=== PATIENT | male | born 1970 | race Asian ===

== ENCOUNTER 2022-10-27 13:12 | Outpatient (CLI) | payer OTHER, SELFPAY | END 2022-10-27 13:13 | disposition home or self-care (01) | PROVIDERS: PCP Family Medicine; Visit Provider Emergency Medicine | DX: Z00.00 Encounter for general adult medical examination without abnormal findings (principal); R03.0 Elevated blood-pressure reading, without diagnosis of hypertension; Z12.5 Encounter for screening for malignant neoplasm of prostate; M10.9 Gout, unspecified | CPT/HCPCS: 80048; 84153; 86140 ==

== ENCOUNTER 2023-04-28 17:10 | Inpatient (IN) | payer OTHER, SELFPAY ==
[2023-04-28] VITALS (36 sets, daily range): BP systolic 109–142; BP diastolic 78–98; PULSE 81–107; RESP 16–22; TEMP 36.3–37; O2SAT 96–100; BMI 17.8
--- NOTE | 2023-04-28 17:40 | CRLHL7_ITS ---
For Patients: As a result of the Century Cures Act, medical imaging exams and procedure reports are released immediately into your electronic medical record. You may view this report before your referring provider. If you have questions, please contact your health care provider. INDICATION: Shortness of breath. TECHNIQUE: CT Pulmonary Angiogram examination was performed after the administration of 95 mL Isovue 370 contrast intravenously. COMPARISON: None. FINDINGS: Lower neck: Visualized thyroid is unremarkable. Cardiovascular: Contrast opacification of the pulmonary arterial tree is adequate. Thoracic aorta is normal in caliber. Pulmonary artery is normal in caliber. No pulmonary embolus. No significant atherosclerotic calcifications. Heart size is normal. No right heart strain. No significant coronary arterial calcifications. Lungs: Dependent atelectasis. Linear bandlike opacifications of the lung bases likely due to subsegmental atelectasis and/or scarring. No focal consolidation. There is a mosaic attenuation pattern of opacification, nonspecific but can be seen with atypical infection, edema and/or air trapping. Airways: Layering debris within the dependent portions of the trachea. Otherwise, patent. Pleura: No pleural effusions or pneumothorax. Lymph nodes: No mediastinal, hilar, or axillary adenopathy. Chest wall: Normal. Upper abdomen: Visualized portions unremarkable. Bones: No acute osseous abnormalities. IMPRESSION: No pulmonary embolus. No CT evidence of right heart strain. Please note that all CT scans at this facility use dose modulation, iterative reconstruction, and/or weight-based dosing when appropriate to reduce radiation dose to as low as reasonably achievable. Dictated by Ozzie Mak MD @ 04/28/2023 7:24:01 PM (Electronically Signed)
[2023-04-28 17:53] LABS: Troponin, Point-of-Care* 0.01 ng/ml (0.01-0.04)
--- NOTE | 2023-04-28 17:54 | ED.GENADULT ---
HPI - General Adult General Time Seen by Provider: 17:54 Date Seen: 04/28/23 Chief complaint: Chest Pain Stated complaint: chest pain Time Seen by Provider: 04/28/23 17:11 Source: patient Mode of arrival: ambulatory Limitations: no limitations History of Present Illness HPI narrative: Patient is a very pleasant 52-year-old male who describes several day history of intermittent severe lower substernal chest discomfort and cold sweats, nausea, he does report to me that he vomits and it is dark black and he also has black stool. He had a colonoscopy in November of this year and that was normal. Patient has had a normal stress echocardiogram in the past as well. This is by chart review. The patient states that intermittently gets this sharp lower chest wall pain. He also has early satiety and feels like when he eats he gets full very quickly. He has not had any history of ulcer disease or he does not drink alcohol at all, no history of varices. He has had no other specific complaints. He does not feel fevers. When he does get these intermittent bouts of pain he has severe cold sweats. Related Data Previous Rx's ?Medication ?Instructions ?Recorded diclofenac sodium 1 % topical gel 2 g topical QID #100 grams 05/05/23 (Arthritis Pain (diclofenac)) cholecalciferol (vitamin D3) 50 50 mcg PO QDAY #90 caps 06/09/23 mcg (2,000 unit) capsule iron,carbonyl 65 mg-vitamin C 125 1 tab PO QDAY #90 tabs 06/09/23 mg tablet,delayed release (Vitron-C) nortriptyline 10 mg capsule 10 - 20 mg (1 - 2 x 10 mg) PO QHS 06/09/23 #90 caps omeprazole 20 mg tablet,delayed 20 mg PO DAILY #90 tabs 07/27/23 release famotidine 20 mg tablet 20 mg PO BID PRN gerd #180 tabs 09/28/23 sucralfate 1 gram tablet (Carafate) 1 g PO BID #60 tabs 11/28/23 Allergies Allergy/AdvReac Type Severity Reaction Status Date / Time No Known Allergies Allergy Unknown Verified 06/09/23 14:13 Review of Systems Status of ROS: Reports: 10 or more systems reviewed and unremarkable except as noted in History and below [facility] Medical History (Updated 06/09/23 @ 18:01 by Ellis Arellano MD) Gastritis and duodenitis ?K29.90 - Gastroduodenitis, unspecified, without bleeding (ICD-10) ABLA (acute blood loss anemia) ?D62 - Acute posthemorrhagic anemia (ICD-10) Elevated blood pressure reading ?R03.0 - Elevated blood-pressure reading, without diagnosis of hypertension (ICD-10) Screening for prostate cancer ?Z12.5 - Encounter for screening for malignant neoplasm of prostate (ICD-10) Screening for colon cancer ?Z12.11 - Encounter for screening for malignant neoplasm of colon (ICD-10) Gouty arthritis ?M10.9 - Gout, unspecified (ICD-10) Normal stress echocardiogram Unintentional weight loss ?R63.4 - Abnormal weight loss (ICD-10) Surgical History (Updated 04/28/23 @ 20:48 by Erik Celestin MD) History of colonoscopy ?Z98.890 - Other specified postprocedural states (ICD-10) Family History Father Coronary artery disease Mother Stroke Social History (Updated 04/28/23 @ 20:49 by Erik Celestin MD) Narrative: He lives with his family in [place]. He is a former smoker and reports now having a cigarette about twice a year. He does not drink alcohol. He does not have recreational drug use. What is your current living situation?: I presently have a place to live Problems where you live: no known problems Problems where you live details: n/a In the past 12 months, utilities in danger of being shut off: no In past 12 months, lack of transportation kept you from medical appts, meetings, work, or getting things needed for daily living: no In the past 12 mos, have been you worried that your food would run out before you had money to buy more?: never true In the past 12 mos, the food you bought just didn't last and you didn't have money to buy more?: never true Highest level of school completed/degree received: some college, no degree Smoking Status: Never smoker Do you use any of these nicotine containing products: None Second hand tobacco smoke exposure: No How often do you have a drink containing alcohol: never How often do you have six or more drinks on one occasion: Never AUDIT-C Alcohol total score: 0 Non-prescribed substance use: denies use Caffeine: No How often does anyone, including family, friends and others, physically hurt you: never How often does anyone, including family, friends and others, insult or talk down to you: never How often does anyone, including family, friends and others, threaten you with harm: never How often does anyone, including family, friends and others, scream or curse at you: never Little interest or pleasure in doing things: nearly every day Feeling down, depressed, or hopeless: not at all service: No Exam Narrative: Exam Narrative: Objective: Patient's vital signs actually look unremarkable other than his diastolic blood pressure slightly elevated, his O2 sats 100% on room air He slightly pale, conjunctiva slightly pale. He is alert orient x3. Noncyanotic. Mouth is clear and shows hydration. Neck is supple. Chest is clear Heart rhythm regular 2/6 systolic murmur Abdomen is benign soft nontender, but he does have some some mild subxiphoid tenderness to palpation but no palpable mass. Extremities are no edema Neurologic neurologic nonfocal Skin periphery slightly pale as mention. But he is warm. Const: Vital Signs, click to edit/add: Vital Signs - 24 hr 04/28/23 17:26 04/28/23 17:35 04/28/23 17:40 Temperature 97.6 F Pulse Rate 87 Pulse Rate [Pulse Oximeter] 86 Respiratory Rate 18 Blood Pressure Blood Pressure [Ri ght Upper Arm] 138/98 H Pulse Oximetry 100 100 98 Oxygen Delivery Me thod Room Air 04/28/23 18:01 04/28/23 18:35 04/28/23 18:36 Temperature Pulse Rate 91 107 H 102 H Pulse Rate [Pulse Oximeter] Respiratory Rate Blood Pressure 120/85 135/88 Blood Pressure [Ri ght Upper Arm] Pulse Oximetry 97 100 98 Oxygen Delivery Me thod 04/28/23 18:37 04/28/23 19:00 04/28/23 19:01 Temperature Pulse Rate 99 95 95 Pulse Rate [Pulse Oximeter] Respiratory Rate Blood Pressure 109/78 Blood Pressure [Ri ght Upper Arm] Pulse Oximetry 99 98 99 Oxygen Delivery Me thod 04/28/23 19:30 04/28/23 19:31 04/28/23 19:32 Temperature Pulse Rate 97 96 94 Pulse Rate [Pulse Oximeter] Respiratory Rate Blood Pressure 126/90 H Blood Pressure [Ri ght Upper Arm] Pulse Oximetry 96 98 97 Oxygen Delivery Me thod 04/28/23 20:00 04/28/23 20:05 04/28/23 20:17 Temperature 97.9 F Pulse Rate 86 91 89 Pulse Rate [Pulse Oximeter] Respiratory Rate 16 Blood Pressure 125/95 H Blood Pressure [Ri ght Upper Arm] Pulse Oximetry 98 100 99 Oxygen Delivery Me thod 04/28/23 20:17 04/28/23 20:30 04/28/23 20:31 Temperature Pulse Rate 93 89 93 Pulse Rate [Pulse Oximeter] Respiratory Rate Blood Pressure 125/95 H 115/82 Blood Pressure [Ri ght Upper Arm] Pulse Oximetry 100 99 100 Oxygen Delivery Me thod 04/28/23 20:34 04/28/23 20:35 04/28/23 20:36 Temperature 97.4 F L Pulse Rate 92 95 91 Pulse Rate [Pulse Oximeter] Respiratory Rate 16 Blood Pressure 124/92 H 124/92 H Blood Pressure [Ri ght Upper Arm] Pulse Oximetry 99 99 99 Oxygen Delivery Me thod 04/28/23 21:02 04/28/23 21:03 04/28/23 21:19 Temperature 97.9 F Pulse Rate 92 83 86 Pulse Rate [Pulse Oximeter] Respiratory Rate 16 Blood Pressure 120/89 118/81 Blood Pressure [Ri ght Upper Arm] Pulse Oximetry 98 97 98 Oxygen Delivery Me thod 04/28/23 21:20 Temperature Pulse Rate 86 Pulse Rate [Pulse Oximeter] Respiratory Rate Blood Pressure 118/81 Blood Pressure [Ri ght Upper Arm] Pulse Oximetry 98 Oxygen Delivery Me thod Course Vital Signs Vital signs: Initial Vital Signs Temperature 97.6 F 04/28/23 17:26 Temperature Source Temporal Artery Scan 04/28/23 17:26 Pulse Rate 86 04/28/23 17:26 Pulse Rhythm Regular 04/28/23 17:26 Pulse Strength 3+ Normal 04/28/23 17:26 Respiratory Rate 18 04/28/23 17:26 Blood Pressure 138/98 H 04/28/23 17:26 Blood Pressure Mean 111 H 04/28/23 17:26 Blood Pressure Position Semi-Fowlers 04/28/23 17:26 Pulse Oximetry 100 04/28/23 17:26 Oxygen Delivery Method Room Air 04/28/23 17:26 Vital Signs Temperature 97.6 F 04/28/23 17:26 Pulse Rate 86 04/28/23 17:26 Respiratory Rate 18 04/28/23 17:26 Blood Pressure 138/98 H 04/28/23 17:26 Pulse Oximetry 100 04/28/23 17:26 Oxygen Delivery Method Room Air 04/28/23 17:26 Temperature 98 F 04/29/23 09:00 Pulse Rate 85 04/29/23 09:00 Respiratory Rate 18 04/29/23 09:00 Blood Pressure 120/89 04/29/23 09:00 Pulse Oximetry 98 04/29/23 09:00 Oxygen Delivery Method Room Air 04/29/23 09:00 Medical Decision Making MDM Narrative Medical decision making narrative: 52-year-old male with intermittent episodes of left-sided and substernal chest pain subxiphoid in area. Patient report he took a couple of Advil and Aleve last night, but typically does not take these. He has had these intermittent spells of discomfort. He is concerned about this. He has had black stool in vomitus consistent with GI bleed. Patient this point needs to be type and cross for 2 units, blood type, will start IV Protonix, IV fluid, I think for completeness will get a CT scan of his chest to see if there is any esophageal mass or chest mass. Will check EKG and troponin. Depending on hemoglobin status and findings may need either admission or referral for more urgent endoscopy. Will check fecal occult blood. Addendum 6:46 p.m. patient continued continues to have intermittent waves of discomfort in his epigastrium and substernal area. A repeat EKG was done that did show some ST segment depression laterally. Will check his labs and troponin will repeat his EKG. Addendum 6:52 p.m. the patient a 2nd EKG as he had another spell and wave of discomfort. His EKG has changed she has got some lateral ST depression in V4 5 and 6 he has got some T-wave inversion in 1 and aVL that are different from his pursed EKG. I think pending his hemoglobin level which certainly fits extremely low could cause some EKG changes we will make decision regarding aspirin, heparin, acute coronary syndrome treatment verses GI bleed him and hemorrhage treatment. The patient was given some small dose of morphine and IV fluid was continued. He has not been hypertensive or tachycardic. Addendum 7:10 p.m.: The patient has a hemoglobin of 5.5. I think this is an acute size changer the last week when he had symptomology. He has had black vomit and black stools for the 4-5 days. He had a 2nd EKG that shows some ST segment depression by think that might be related to his anemia. And not coronary disease as his troponin is normal, his hemodynamics appear pretty normal. We will start blood when the type and screen is complete. Will discuss with tertiary care regarding accepting because we do not have endoscopy here and I suspect he will need upper endoscopy fairly acutely. Throughout the evening we have tried to contact various healthcare facilities throughout [place] and there are no available beds in any system. Will start blood on Mr. Acuña and he continues to be hemodynamically stable. We have given him Protonix, Carafate, IV fluid, and now type specific blood. He will be kept in the ER for a couple of hours to assure that he is stable and not decompensating although he has been very stable hemodynamically so far. Will continue his transfusions. At that point likely hospitalization. He will need upper GI study in the very near future. Because there was no transfer availability even with limited success for any given TXA as well as we have no transfer options. Patient does feel a little bit better. Lab Data Labs: Lab Results 04/28/23 04/28/23 Range/Units 17:30 18:40 WBC 5.90 (4.50-11.00) K/uL RBC 1.87 L (4.30-5.90) m/uL Hgb 5.5 L* (13.5-17.5) gm/dL Hct 17.1 L (37.0-53.0) % MCV 91 (80-100) fL MCH 29 (26-34) pg MCHC 32 (32-36) gm/dL RDW Coeff of Harry 15.4 (11.5-15.5) % Plt Count 235 (140-440) K/uL Neut % (Auto) 43.1 (42.0-72.0) % Lymph % (Auto) 43.4 (20-44) % [place] % (Auto) 10.5 (0.0-11.0) % Eos % (Auto) 2.0 (0.0-7.0) % Baso % (Auto) 0.7 (0.0-3.0) % Neut # (Auto) 2.54 (1.7-7.0) K/uL Lymph # (Auto) 2.56 (0.90-2.90) K/uL [place] # (Auto) 0.60 (0.00-0.90) K/UL Eos # (Auto) 0.12 (0.00-0.50) K/uL Baso # (Auto) 0.04 (0.00-0.30) K/uL Abs Immat Gran (auto) 0.02 (0.00-0.30) K/uL Imm/Tot Granulo (auto) 0.3 % INR 1.12 H (0.91-1.10) APTT 26 (23-33) Seconds Sodium 138 (135-149) mmol/L Potassium 3.5 L (3.6-5.1) mmol/L Chloride 109 (96-114) mmol/L Carbon Dioxide 23 (20-32) mmol/L Anion Gap 6 L (7-15) mEq/L BUN 21 (7-30) mg/dL Creatinine 0.5 (0.5-1.5) mg/dL Estimated Creat Clear 124.74 Estimated GFR 124 ml/min Glucose 80 (60-115) mg/dL Lactate 1.3 (0.5-1.9) mmol/L Calcium 7.5 L (8.4-10.6) mg/dL Total Bilirubin 0.1 (0.1-1.5) mg/dL Direct Bilirubin 0.0 (0.0-0.5) mg/dL AST 21 (12-35) U/L ALT 18 (4-50) U/L Alkaline Phosphatase 54 (40-150) U/L Troponin I < 0.01 L (0.01-0.04) ng/mL C-Reactive Protein < 0.5 L (0.5-1.0) mg/dL Total Protein 5.2 L (6.0-8.3) g/dL Albumin 2.6 L (3.3-5.0) g/dL Amylase 61 (18-89) U/L POC Troponin I 0.01 (0.01-0.04) ng/ml Blood Type AB Positive Antibody Screen NEGATIVE Crossmatch (AHG) See Detail Discharge Plan Discharge Clinical Impression: GI bleed, Chest pain Patient Disposition: Admitted As Inpatient Condition: Stable
[2023-04-28] MEDS: LORazepam 2 MG/ML inj 0.5 MG IVP (18:02)
[2023-04-28] MEDS: 0.9 % SODIUM CHLORIDE 500 ML 500 ML IV (18:02)
[2023-04-28] MEDS: PANTOPRAZOLE SODIUM 40 MG INJ IVP ×2 (18:02→19:30)
[2023-04-28] MEDS: 0.9 % SODIUM CHLORIDE 1000 ml 1,000 ML 6000 ML IV (18:45)
[2023-04-28] MEDS: MORPHINE 4 MG/ML INJ IVP (18:45)
[2023-04-28 18:49] LABS: Lactate* 1.3 mmol/L (0.5-1.9)
--- NOTE | 2023-04-28 18:49 | ED.NURSE ---
Patient returned from CT scan and began reporting 10/10 chest pain. At that time, he appeared very pale. Repeat EKG performed. VS taken. Dr. Magallon notified of change in patient status. Pt given 4mg Morphine IV per Dr. Magallon's orders. 2 warm blankets applied as pt's skin was cool to touch. Warmed NS started.
[2023-04-28 18:52] LABS: Basophils Absolute Auto 0.04 K/uL (0.00-0.30); Basophils Percent Auto 0.7 % (0.0-3.0); Eosinophils Absolute Auto 0.12 K/uL (0.00-0.50); Hematocrit 17.1 % (37.0-53.0); Immature Granulocytes Abs Auto 0.02 K/uL (0.00-0.30); Immature Granulocytes Pct Auto 0.3 %; Lymphocytes Absolute Auto 2.56 K/uL (0.90-2.90); Lymphocytes Percent Auto 43.4 % (20-44); Mean Corpuscular HGB Conc 32 gm/dL (32-36); Mean Corpuscular Hemoglobin 29 pg (26-34); Mean Corpuscular Volume 91 fL (80-100); Monocytes Percent Auto 10.5 % (0.0-11.0); Neutrophils Absolute Auto 2.54 K/uL (1.7-7.0); Neutrophils Percent Auto 43.1 % (42.0-72.0); Platelet Count* 235 K/uL (140-440); RDW Coefficient of Variation % 15.4 % (11.5-15.5); Red Blood Count 1.87 m/uL (4.30-5.90)
--- NOTE | 2023-04-28 18:57 | ED.NURSE ---
Received call from Renetta in lab. Pt's hemoglobin critical at 5.5. Dr. Magallon verbally notified @ [id number]. Per Dr. Magallon, will await type & screen then plan to transfuse 2u PRBC's.
[2023-04-28 18:58] LABS: Hemoglobin* 5.5 gm/dL (13.5-17.5)
[2023-04-28 19:09] LABS: Albumin* 2.6 g/dL (3.3-5.0); Chloride* 109 mmol/L (96-114)
[2023-04-28 19:10] LABS: Potassium* 3.5 mmol/L (3.6-5.1); Sodium* 138 mmol/L (135-149)
[2023-04-28] MEDS: SUCRALFATE 1 GM TABLET PO (19:10)
[2023-04-28 19:11] LABS: INR 1.12 (0.91-1.10); Partial Thromboplastin Time* 26 Seconds (23-33)
[2023-04-28 19:12] LABS: Amylase* 61 U/L (18-89); Creatinine* 0.5 mg/dL (0.5-1.5); Est. Creatinine Clearance* 124.74; Estimated Glomerular Filt Rate 124 ml/min
[2023-04-28 19:13] LABS: Alanine Aminotransferase* 18 U/L (4-50); Alkaline Phosphatase* 54 U/L (40-150); Anion Gap 6 mEq/L (7-15); Aspartate Amino Transferase* 21 U/L (12-35); Bilirubin Total* 0.1 mg/dL (0.1-1.5); Blood Urea Nitrogen* 21 mg/dL (7-30); Calcium* 7.5 mg/dL (8.4-10.6); Carbon Dioxide* 23 mmol/L (20-32); Glucose* 80 mg/dL (60-115); Total Protein* 5.2 g/dL (6.0-8.3)
[2023-04-28 19:25] LABS: C Reactive Protein* < 0.5 mg/dL (0.5-1.0); Troponin I* < 0.01 ng/mL (0.01-0.04)
[2023-04-28 20:10] LABS: Slide Review Reflex No
--- NOTE | 2023-04-28 20:36 | PM.IMHP1 ---
Hospitalist- H&P: HPI History of Present Illness Date Seen: 04/28/23 Chief complaint: chest pain Narrative: London Ojeda is a 52 year old male admitted through the emergency department with 4 day history of chest pain, dyspnea, hematemesis, melena. Patient reports that starting Monday he was having substernal chest pain. This is relatively constant. He was also vomiting of black gastric contents. He also noted that he was having melanotic stools. He took aspirin and Aleve with temporary relief of symptoms. He felt a little better on Monday and Monday. He felt worse on again with more chest pain, hematemesis and melena. He took more aspirin and Aleve. Symptoms continued till today and so he came to the emergency department. He does note that he has been having heartburn for the last few months. Intermittently he takes Prilosec for this. He estimates that he takes it about every other day. He does not having trouble swallowing. He has no cardiac history or cardiac risk factors. He has no history of GI bleeding or anemia. No history of bleeding or clotting disorders. Other than his recent aspirin and NSAID use he does not regularly consume aspirin or NSAIDs. He is not on anticoagulation. He does not drink alcohol. He rarely smokes cigarettes. He reports no recreational drug use. He has no history of liver disease, hepatitis, jaundice. Review of Systems Narrative: Prior to the last 4 days he reports he has had some heartburn. He also describes some indigestion or slow digestion. No other history of cardiac heard gastrointestinal symptoms. He had a normal stress echo test about 4 years ago [facility] Medical History (Updated 04/28/23 @ 20:55 by Erik Celestin MD) ABLA (acute blood loss anemia) ?D62 - Acute posthemorrhagic anemia (ICD-10) Elevated blood pressure reading ?R03.0 - Elevated blood-pressure reading, without diagnosis of hypertension (ICD-10) Screening for prostate cancer ?Z12.5 - Encounter for screening for malignant neoplasm of prostate (ICD-10) Screening for colon cancer ?Z12.11 - Encounter for screening for malignant neoplasm of colon (ICD-10) Gouty arthritis ?M10.9 - Gout, unspecified (ICD-10) Normal stress echocardiogram Unintentional weight loss ?R63.4 - Abnormal weight loss (ICD-10) Surgical History (Updated 04/28/23 @ 20:48 by Erik Celestin MD) History of colonoscopy ?Z98.890 - Other specified postprocedural states (ICD-10) Family History Father Coronary artery disease Mother Stroke Social History (Updated 04/28/23 @ 20:49 by Erik Celestin MD) Narrative: He lives with his family in [place]. He is a former smoker and reports now having a cigarette about twice a year. He does not drink alcohol. He does not have recreational drug use. Smoking Status: Former smoker Do you use any of these nicotine containing products: None Second hand tobacco smoke exposure: No How often do you have a drink containing alcohol: never How often do you have six or more drinks on one occasion: Never AUDIT-C Alcohol total score: 0 Non-prescribed substance use: denies use Little interest or pleasure in doing things: nearly every day Feeling down, depressed, or hopeless: not at all service: No Meds Home Medications and Allergies Home Medication Comments: No chronic medications. This week he has been taking aspirin and Aleve for chest pain Allergies Allergy/AdvReac Type Severity Reaction Status Date / Time No Known Allergies Allergy Unknown Verified 04/28/23 17:31 Exam Narrative: Exam Narrative: He is alert and appears in no distress. He gives his own history. His somewhat pale-appearing. Eyes normal. Sclerae nonicteric. Oropharynx is normal. Neck is supple without mass or adenopathy. Respirations are clear to auscultation. No wheezing rales or rhonchi. Cardiovascular: S1, S2, regular rate and rhythm. No murmur gallop or rub. Abdomen: Bowel sounds active. Abdomen is soft with mild tenderness just below and to the left of the umbilicus. No mass. Extremities with intact pulses. Question of clubbing of his fingernails. Intact peripheral pulses. No edema. No rash Const: Vital Signs, click to edit/add: Vital Signs - 24 hr 04/28/23 17:26 04/28/23 17:35 04/28/23 17:40 Temperature 97.6 F Pulse Rate 87 Pulse Rate [Pulse Oximeter] 86 Respiratory Rate 18 Blood Pressure Blood Pressure [Ri ght Upper Arm] 138/98 H Pulse Oximetry 100 100 98 Oxygen Delivery Me thod Room Air 04/28/23 18:01 04/28/23 18:35 04/28/23 18:36 Temperature Pulse Rate 91 107 H 102 H Pulse Rate [Pulse Oximeter] Respiratory Rate Blood Pressure 120/85 135/88 Blood Pressure [Ri ght Upper Arm] Pulse Oximetry 97 100 98 Oxygen Delivery Me thod 04/28/23 18:37 04/28/23 19:00 04/28/23 19:01 Temperature Pulse Rate 99 95 95 Pulse Rate [Pulse Oximeter] Respiratory Rate Blood Pressure 109/78 Blood Pressure [Ri ght Upper Arm] Pulse Oximetry 99 98 99 Oxygen Delivery Me thod 04/28/23 19:30 04/28/23 19:31 04/28/23 20:17 Temperature 97.9 F Pulse Rate 97 96 89 Pulse Rate [Pulse Oximeter] Respiratory Rate 16 Blood Pressure 126/90 H 125/95 H Blood Pressure [Ri ght Upper Arm] Pulse Oximetry 96 98 99 Oxygen Delivery Me thod 04/28/23 20:34 Temperature 97.4 F L Pulse Rate 92 Pulse Rate [Pulse Oximeter] Respiratory Rate 16 Blood Pressure 124/92 H Blood Pressure [Ri ght Upper Arm] Pulse Oximetry 99 Oxygen Delivery Me thod Documenting provider has reviewed patient's vital signs: yes Hospitalist - H&P: Result Labs Labs: Short CBC 04/28/23 Range/Units 18:40 WBC 5.90 (4.50-11.00) K/uL Hgb 5.5 L* (13.5-17.5) gm/dL Hct 17.1 L (37.0-53.0) % Plt Count 235 (140-440) K/uL BMP 04/28/23 18:40 Sodium 138 Potassium 3.5 L Chloride 109 Carbon Dioxide 23 BUN 21 Creatinine 0.5 Glucose 80 Calcium 7.5 L Cardiac Enzymes 04/28/23 Range/Units 18:40 Troponin I < 0.01 L (0.01-0.04) ng/mL Liver Function 04/28/23 Range/Units 18:40 Total Bilirubin 0.1 (0.1-1.5) mg/dL Direct Bilirubin 0.0 (0.0-0.5) mg/dL AST 21 (12-35) U/L ALT 18 (4-50) U/L Alkaline Phosphatase 54 (40-150) U/L Albumin 2.6 L (3.3-5.0) g/dL Assessment and Plan Assessment and plan (1) ABLA (acute blood loss anemia): Problem comment: Close monitoring of vital signs, blood transfusion as needed, urgent evaluation of bleeding source with endoscopy. Unfortunately endoscopies not available here for the next 2.5 days. Attempts to transfer him to facility with more urgent endoscopy have been unsuccessful. Status: Acute (2) GI bleed: Problem comment: Initiate PPI, blood transfusion as needed, monitor for cardiovascular instability, upper endoscopy as soon as possible Status: Acute (3) Chest pain: Problem comment: Cardiovascular monitoring. Suspect chest pain may be due to GI bleeding problem. Status: Acute Plan Patient will be admitted to the hospital for close monitoring, blood transfusion, upper endoscopy as urgently as can be evaluated. Discussed plan of care with the patient. Also noted are limitations on urgent endoscopy. He is in agreement with the plan.
--- NOTE | 2023-04-28 20:40 | ED.NURSE ---
This continuity writer remained in room with pt for first 15 minutes after starting blood products. Pt denies any infusion reaction at this time. VS stable, see TAR for vitals. Pt resting comfortably in bed. Will reassess vitals for transfusion reaction at 2118. Pt verbalizes understanding to call if he feels any different at all.
[2023-04-28] MEDS: TRANEXAMIC ACID 100 MG/ML INJ 1000 MG IV (21:00)
--- NOTE | 2023-04-28 21:30 | ED.NURSE ---
Pt's vitals rechecked @ 2118. VS stable, see TAR. Pt continues to deny any sign of transfusion reaction. VS monitoring q 30 mins. Pt resting comfortably in bed at this assessment. Will continue to monitor and assess.
[2023-04-28 22:22] LABS: Hemoglobin* 7.2 gm/dL (13.5-17.5)
--- NOTE | 2023-04-28 22:22 | ED.NURSE ---
Pt's hemoglobin increased to 7.2 after 1 unit PRBC's. Med/surg updated on increase in hemoglobin. Per Dr. Celestin, plan was to admit to med/surg if hemoglobin is trending upwards.
--- NOTE | 2023-04-28 22:45 | ED.NURSE ---
2nd unit of PRBC's collected from lab. Sent with patient to med/surg floor for nurses to start. Patient's color improved after first unit. He reports feeling better than before start of blood. Patient in stable condition upon admit to med/surg. Pt going to CCU2. Report called. All questions answered.
[2023-04-28 22:49] LABS: Troponin I* 0.02 ng/mL (0.01-0.04)
[2023-04-28] MEDS: OMEPRAZOLE 20 MG CAPSULE DR 40 MG PO (23:47)
[2023-04-29] VITALS (9 sets, daily range): BP systolic 112–142; BP diastolic 79–89; PULSE 72–101; RESP 18–22; TEMP 36.3–37.1; O2SAT 96–98; BMI 20.5
[2023-04-29] MEDS: POTASSIUM CHLORIDE 10 MEQ/100 ML PIGGYBACK 100 MEQ IVPB ×2 (00:08→01:07)
[2023-04-29] MEDS: SODIUM CHLORIDE 0.9 % (FLUSH) 10 ML SYRINGE 5 ML IVF ×2 (00:14→10:20)
[2023-04-29] MEDS: PANTOPRAZOLE SODIUM 40 MG INJ IVP (00:40)
[2023-04-29 04:57] LABS: Chloride* 109 mmol/L (96-114)
[2023-04-29 04:58] LABS: Potassium* 3.9 mmol/L (3.6-5.1); Sodium* 137 mmol/L (135-149)
[2023-04-29 05:00] LABS: Creatinine* 0.5 mg/dL (0.5-1.5); Est. Creatinine Clearance* 144.36; Estimated Glomerular Filt Rate 124 ml/min
[2023-04-29 05:01] LABS: Anion Gap 5 mEq/L (7-15); Blood Urea Nitrogen* 15 mg/dL (7-30); Calcium* 7.8 mg/dL (8.4-10.6); Carbon Dioxide* 23 mmol/L (20-32); Glucose* 89 mg/dL (60-115)
[2023-04-29 05:12] LABS: Troponin I* 0.03 ng/mL (0.01-0.04)
[2023-04-29 05:53] LABS: Hemoglobin* 8.7 gm/dL (13.5-17.5)
--- NOTE | 2023-04-29 06:24 | PC.NURSE ---
Patient admitted to the unit at 2245. 1 unit of PRBC administered in ED and 1 unit administered on unit. Tolerated well. Hbg recheck 8.7. Patient verbalized feeling better. Chest pain and SOB at rest resolved. HR at end of shift 70-80's. No emesis or BM during shift. Afebrile. Independent in room.
--- NOTE | 2023-04-29 09:35 | PM.IMPN1 ---
Progress Note: A&P Assessment and plan (1) ABLA (acute blood loss anemia): Problem details: Close monitoring of vital signs, blood transfusion as needed, urgent evaluation of bleeding source with endoscopy. Unfortunately endoscopies not available here for the next 2.5 days. Attempts to transfer him to facility with more urgent endoscopy have been unsuccessful. Status: Acute (2) Chest pain: Problem details: Cardiovascular monitoring. Suspect chest pain may be due to GI bleeding problem. Status: Acute (3) GI bleed: Problem details: Initiate PPI, blood transfusion as needed, monitor for cardiovascular instability, upper endoscopy as soon as possible Status: Acute (4) Normal stress echocardiogram: Status: Chronic Subjective Time Seen by Provider: 09:00 Date Seen: 04/29/23 Interval history: Jay is feeling much better today. He denies CP or SOB. He has not had any emesis or BM since admission yesterday. He got 2 units PRBC yesterday. Exam Narrative: Exam Narrative: General: No acute distress. Awake, alert, oriented. Mild pallor. No jaundice. Oropharynx: Clear. Mucous membranes moist. Cardiovascular: Regular rate and rhythm. No murmurs, gallops, or rubs. Respiratory: Clear to auscultation bilaterally. No wheezes or crackles. Abdomen: Bowel sounds present. Soft, nondistended, mildly tender in the epigastrium, left upper quadrant, and just low into the left of the umbilicus. He notes that the greatest amount of pain is in the area just below and to the left of the umbilicus. No rebound tenderness or guarding. Extremities: No pedal edema. Const: Vital Signs, click to edit/add: Vital Signs - 24 hr 04/28/23 17:26 04/28/23 17:35 04/28/23 17:40 Temperature 97.6 F Pulse Rate 87 Pulse Rate [Pulse Oximeter] 86 Respiratory Rate 18 Blood Pressure Blood Pressure [Ri ght Arm] Blood Pressure [Ri ght Upper Arm] 138/98 H Pulse Oximetry 100 100 98 Oxygen Delivery Me thod Room Air 04/28/23 18:01 04/28/23 18:35 04/28/23 18:36 Temperature Pulse Rate 91 107 H 102 H Pulse Rate [Pulse Oximeter] Respiratory Rate Blood Pressure 120/85 135/88 Blood Pressure [Ri ght Arm] Blood Pressure [Ri ght Upper Arm] Pulse Oximetry 97 100 98 Oxygen Delivery Me thod 04/28/23 18:37 04/28/23 19:00 04/28/23 19:01 Temperature Pulse Rate 99 95 95 Pulse Rate [Pulse Oximeter] Respiratory Rate Blood Pressure 109/78 Blood Pressure [Ri ght Arm] Blood Pressure [Ri ght Upper Arm] Pulse Oximetry 99 98 99 Oxygen Delivery Me thod 04/28/23 19:30 04/28/23 19:31 04/28/23 19:32 Temperature Pulse Rate 97 96 94 Pulse Rate [Pulse Oximeter] Respiratory Rate Blood Pressure 126/90 H Blood Pressure [Ri ght Arm] Blood Pressure [Ri ght Upper Arm] Pulse Oximetry 96 98 97 Oxygen Delivery Me thod 04/28/23 20:00 04/28/23 20:05 04/28/23 20:17 Temperature 97.9 F Pulse Rate 86 91 89 Pulse Rate [Pulse Oximeter] Respiratory Rate 16 Blood Pressure 125/95 H Blood Pressure [Ri ght Arm] Blood Pressure [Ri ght Upper Arm] Pulse Oximetry 98 100 99 Oxygen Delivery Me thod 04/28/23 20:17 04/28/23 20:30 04/28/23 20:31 Temperature Pulse Rate 93 89 93 Pulse Rate [Pulse Oximeter] Respiratory Rate Blood Pressure 125/95 H 115/82 Blood Pressure [Ri ght Arm] Blood Pressure [Ri ght Upper Arm] Pulse Oximetry 100 99 100 Oxygen Delivery Me thod 04/28/23 20:34 04/28/23 20:35 04/28/23 20:36 Temperature 97.4 F L Pulse Rate 92 95 91 Pulse Rate [Pulse Oximeter] Respiratory Rate 16 Blood Pressure 124/92 H 124/92 H Blood Pressure [Ri ght Arm] Blood Pressure [Ri ght Upper Arm] Pulse Oximetry 99 99 99 Oxygen Delivery Me thod 04/28/23 21:02 04/28/23 21:03 04/28/23 21:19 Temperature 97.9 F Pulse Rate 92 83 86 Pulse Rate [Pulse Oximeter] Respiratory Rate 16 Blood Pressure 120/89 118/81 Blood Pressure [Ri ght Arm] Blood Pressure [Ri ght Upper Arm] Pulse Oximetry 98 97 98 Oxygen Delivery Me thod 04/28/23 21:20 04/28/23 21:21 04/28/23 21:30 Temperature Pulse Rate 86 81 82 Pulse Rate [Pulse Oximeter] Respiratory Rate Blood Pressure 118/81 Blood Pressure [Ri ght Arm] Blood Pressure [Ri ght Upper Arm] Pulse Oximetry 98 98 100 Oxygen Delivery Me thod 04/28/23 21:32 04/28/23 22:00 04/28/23 22:01 Temperature Pulse Rate 86 87 90 Pulse Rate [Pulse Oximeter] Respiratory Rate Blood Pressure 112/78 132/82 Blood Pressure [Ri ght Arm] Blood Pressure [Ri ght Upper Arm] Pulse Oximetry 100 98 100 Oxygen Delivery Me thod 04/28/23 22:25 04/28/23 22:26 04/28/23 22:30 Temperature 98.3 F Pulse Rate 95 94 100 Pulse Rate [Pulse Oximeter] Respiratory Rate 16 Blood Pressure 132/97 H 132/97 H Blood Pressure [Ri ght Arm] Blood Pressure [Ri ght Upper Arm] Pulse Oximetry 98 97 97 Oxygen Delivery Me thod 04/28/23 22:31 04/28/23 22:52 04/28/23 23:00 Temperature 98.3 F 98.3 F Pulse Rate 104 H 101 H Pulse Rate [Pulse Oximeter] 101 H Respiratory Rate 16 20 Blood Pressure 130/97 H 142/87 H Blood Pressure [Ri ght Arm] 142/87 H Blood Pressure [Ri ght Upper Arm] Pulse Oximetry 97 98 97 Oxygen Delivery Me thod Room Air 04/28/23 23:00 04/28/23 23:10 04/29/23 00:00 Temperature 98.6 F 98.6 F Pulse Rate 98 103 H 97 Pulse Rate [Pulse Oximeter] Respiratory Rate 22 20 Blood Pressure 123/80 119/88 Blood Pressure [Ri ght Arm] Blood Pressure [Ri ght Upper Arm] Pulse Oximetry 97 97 Oxygen Delivery Me thod 04/29/23 00:24 04/29/23 00:57 04/29/23 01:00 Temperature 98.3 F 98.7 F 98.7 F Pulse Rate 94 Pulse Rate [Pulse Oximeter] 101 H 94 Respiratory Rate 22 18 18 Blood Pressure 116/81 Blood Pressure [Ri ght Arm] 142/87 H 116/81 Blood Pressure [Ri ght Upper Arm] Pulse Oximetry 97 98 98 Oxygen Delivery Me thod Room Air Room Air 04/29/23 01:29 04/29/23 03:00 04/29/23 05:00 Temperature 98.7 F 98.5 F 98.5 F Pulse Rate 90 Pulse Rate [Pulse Oximeter] 82 78 Respiratory Rate 18 18 18 Blood Pressure 115/86 Blood Pressure [Ri ght Arm] 128/79 118/85 Blood Pressure [Ri ght Upper Arm] Pulse Oximetry 98 96 98 Oxygen Delivery Me thod Room Air Room Air 04/29/23 07:00 04/29/23 07:00 04/29/23 07:00 Temperature 97.4 F L Pulse Rate 72 Pulse Rate [Pulse Oximeter] 72 75 Respiratory Rate 18 18 Blood Pressure Blood Pressure [Ri ght Arm] 112/81 Blood Pressure [Ri ght Upper Arm] Pulse Oximetry 97 Oxygen Delivery Me thod Room Air Labs Labs: Laboratory Results - last 24 hr 04/28/23 04/28/23 04/28/23 17:30 18:40 22:10 WBC 5.90 RBC 1.87 L Hgb 5.5 L* 7.2 L* Hct 17.1 L MCV 91 MCH 29 MCHC 32 RDW Coeff of Harry 15.4 Plt Count 235 Neut % (Auto) 43.1 Lymph % (Auto) 43.4 Becker % (Auto) 10.5 Eos % (Auto) 2.0 Baso % (Auto) 0.7 Neut # (Auto) 2.54 Lymph # (Auto) 2.56 Becker # (Auto) 0.60 Eos # (Auto) 0.12 Baso # (Auto) 0.04 Abs Immat Gran (auto) 0.02 Imm/Tot Granulo (auto) 0.3 INR 1.12 H APTT 26 Sodium 138 Potassium 3.5 L Chloride 109 Carbon Dioxide 23 Anion Gap 6 L BUN 21 Creatinine 0.5 Estimated Creat Clear 124.74 Estimated GFR 124 Glucose 80 Lactate 1.3 Calcium 7.5 L Total Bilirubin 0.1 Direct Bilirubin 0.0 AST 21 ALT 18 Alkaline Phosphatase 54 Troponin I < 0.01 L 0.02 C-Reactive Protein < 0.5 L Total Protein 5.2 L Albumin 2.6 L Amylase 61 POC Troponin I 0.01 Blood Type AB Positive Antibody Screen NEGATIVE Crossmatch (AHG) See Detail 04/29/23 04/29/23 04/29/23 04:35 04:35 05:47 WBC RBC Hgb 8.7 L Hct MCV MCH MCHC RDW Coeff of Harry Plt Count Neut % (Auto) Lymph % (Auto) Becker % (Auto) Eos % (Auto) Baso % (Auto) Neut # (Auto) Lymph # (Auto) Becker # (Auto) Eos # (Auto) Baso # (Auto) Abs Immat Gran (auto) Imm/Tot Granulo (auto) INR APTT Sodium 137 Potassium 3.9 Chloride 109 Carbon Dioxide 23 Anion Gap 5 L BUN 15 Creatinine 0.5 Estimated Creat Clear 144.36 Estimated GFR 124 Glucose 89 Lactate Calcium 7.8 L Total Bilirubin Direct Bilirubin AST ALT Alkaline Phosphatase Troponin I Cancelled 0.03 C-Reactive Protein Total Protein Albumin Amylase POC Troponin I Blood Type Antibody Screen Crossmatch (AHG)
--- NOTE | 2023-04-29 09:48 | PM.DST ---
Transfer Discharge Sum: Prov Provider Time Seen by Provider: 09:00 Date Seen: 04/29/23 Date of admission: 04/29/23 09:39 Primary care physician: Ellis Arellano MD Attending physician on discharge: Merly Herndon Anticipated date of transfer: 04/29/23 [facility] Diagnosis Discharge Diagnosis (1) ABLA (acute blood loss anemia): Status: Acute Problem details: Close monitoring of vital signs, 2 units PRBCs given yesterday, needs urgent evaluation of bleeding source with endoscopy. Unfortunately endoscopies not available here for the next 2.5 days. Attempts to transfer him to facility with more urgent endoscopy were unsuccessful initially, so he was admitted to our facility and attempts to transfer continued. [facility] is able to take him in transfer today for GI consultation and EGD. (2) Chest pain: Status: Acute Problem details: Cardiovascular monitoring. Patient had a normal stress echocardiogram in October 2022. Suspect chest pain may be due to GI bleeding problem. Chest pain resolved overnight after blood transfusion. (3) GI bleed: Status: Acute Problem details: Initiate PPI, blood transfusion as needed, monitor for cardiovascular instability, upper endoscopy as soon as possible (4) Normal stress echocardiogram: Status: Chronic Problem details: 10/2022 Transfer Discharge Sum: Med Medications Active and Home Medications: Home Medications aspirin 325 mg tablet 325 mg PO Q4-6H PRN 04/29/23 [History Confirmed 04/29/23] naproxen sodium 220 mg capsule (Aleve) 220 mg PO BID PRN 04/29/23 [History Confirmed 04/29/23] omeprazole 20 mg tablet,delayed release 20 mg PO DAILY PRN 04/29/23 [History Confirmed 04/29/23] Active Medications Lorazepam (Lorazepam 2 Mg/Ml Inj) 1 mg IVP Q4H PRN Omeprazole (Omeprazole [address]) 40 mg PO BID [facility] Last Admin: 04/28/23 23:47 Dose: 40 mg Ondansetron HCl (Ondansetron 2 Mg/Ml Inj) 4 mg IVP Q4H PRN PRN Reason: Nausea Sodium Chloride (0.9 % Sodium Chloride 250 Ml) 250 ml IV ONCE PRN Sodium Chloride (Sodium Chloride 0.9 % (Flush) 10 Ml Syringe) 5 ml IVF BID [facility] Last Admin: 04/29/23 00:14 Dose: 5 ml Transfer Discharge Sum: Hosp Hospital Course Hospital course: [place] Ojeda is a 52 year old male admitted through the emergency department with 4 day history of chest pain, dyspnea, hematemesis, melena. Patient reports that starting Monday he was having substernal chest pain. This is relatively constant. He was also vomiting of black gastric contents. He also noted that he was having melanotic stools. He took aspirin and Aleve with temporary relief of symptoms. He felt a little better on Monday and Monday. He felt worse on again with more chest pain, hematemesis and melena. He took more aspirin and Aleve. Symptoms continued till today and so he came to the emergency department. He does note that he has been having heartburn for the last few months. Intermittently he takes Prilosec for this. He estimates that he takes it about every other day. He does not having trouble swallowing. He has no cardiac history or cardiac risk factors. He has no history of GI bleeding or anemia. No history of bleeding or clotting disorders. Other than his recent aspirin and NSAID use he does not regularly consume aspirin or NSAIDs. He is not on anticoagulation. He does not drink alcohol. He rarely smokes cigarettes. He reports no recreational drug use. He has no history of liver disease, hepatitis, jaundice. Jay is feeling better today. He denies CP or SOB. He has not had any emesis or BM since admission yesterday. He got 2 units PRBC yesterday. Hemoglobin was 5.5 yesterday and is 8.7 this morning. He is being transferred for GI consultation, EGD for acute blood loss anemia secondary to suspected upper GI bleed. Time Spent with Patient Time attestation: Total time spent providing and/or coordinating transfer services: 40 minutes Exam Narrative: Exam Narrative: General: No acute distress. Awake, alert, oriented. Mild pallor. No jaundice. Oropharynx: Clear. Mucous membranes moist. Cardiovascular: Regular rate and rhythm. No murmurs, gallops, or rubs. Respiratory: Clear to auscultation bilaterally. No wheezes or crackles. Abdomen: Bowel sounds present. Soft, nondistended, mildly tender in the epigastrium, left upper quadrant, and just low into the left of the umbilicus. He notes that the greatest amount of pain is in the area just below and to the left of the umbilicus. No rebound tenderness or guarding. Extremities: No pedal edema. Const: Vital Signs, click to edit/add: Vital Signs - 24 hr 04/28/23 17:26 04/28/23 17:35 04/28/23 17:40 Temperature 97.6 F Pulse Rate 87 Pulse Rate [Pulse Oximeter] 86 Respiratory Rate 18 Blood Pressure Blood Pressure [Ri ght Arm] Blood Pressure [Ri ght Upper Arm] 138/98 H Pulse Oximetry 100 100 98 Oxygen Delivery Me thod Room Air 04/28/23 18:01 04/28/23 18:35 04/28/23 18:36 Temperature Pulse Rate 91 107 H 102 H Pulse Rate [Pulse Oximeter] Respiratory Rate Blood Pressure 120/85 135/88 Blood Pressure [Ri ght Arm] Blood Pressure [Ri ght Upper Arm] Pulse Oximetry 97 100 98 Oxygen Delivery Me thod 04/28/23 18:37 04/28/23 19:00 04/28/23 19:01 Temperature Pulse Rate 99 95 95 Pulse Rate [Pulse Oximeter] Respiratory Rate Blood Pressure 109/78 Blood Pressure [Ri ght Arm] Blood Pressure [Ri ght Upper Arm] Pulse Oximetry 99 98 99 Oxygen Delivery Me thod 04/28/23 19:30 04/28/23 19:31 04/28/23 19:32 Temperature Pulse Rate 97 96 94 Pulse Rate [Pulse Oximeter] Respiratory Rate Blood Pressure 126/90 H Blood Pressure [Ri ght Arm] Blood Pressure [Ri ght Upper Arm] Pulse Oximetry 96 98 97 Oxygen Delivery Me thod 04/28/23 20:00 04/28/23 20:05 04/28/23 20:17 Temperature 97.9 F Pulse Rate 86 91 89 Pulse Rate [Pulse Oximeter] Respiratory Rate 16 Blood Pressure 125/95 H Blood Pressure [Ri ght Arm] Blood Pressure [Ri ght Upper Arm] Pulse Oximetry 98 100 99 Oxygen Delivery Me thod 04/28/23 20:17 04/28/23 20:30 04/28/23 20:31 Temperature Pulse Rate 93 89 93 Pulse Rate [Pulse Oximeter] Respiratory Rate Blood Pressure 125/95 H 115/82 Blood Pressure [Ri ght Arm] Blood Pressure [Ri ght Upper Arm] Pulse Oximetry 100 99 100 Oxygen Delivery Me thod 04/28/23 20:34 04/28/23 20:35 04/28/23 20:36 Temperature 97.4 F L Pulse Rate 92 95 91 Pulse Rate [Pulse Oximeter] Respiratory Rate 16 Blood Pressure 124/92 H 124/92 H Blood Pressure [Ri ght Arm] Blood Pressure [Ri ght Upper Arm] Pulse Oximetry 99 99 99 Oxygen Delivery Me thod 04/28/23 21:02 04/28/23 21:03 04/28/23 21:19 Temperature 97.9 F Pulse Rate 92 83 86 Pulse Rate [Pulse Oximeter] Respiratory Rate 16 Blood Pressure 120/89 118/81 Blood Pressure [Ri ght Arm] Blood Pressure [Ri ght Upper Arm] Pulse Oximetry 98 97 98 Oxygen Delivery Me thod 04/28/23 21:20 04/28/23 21:21 04/28/23 21:30 Temperature Pulse Rate 86 81 82 Pulse Rate [Pulse Oximeter] Respiratory Rate Blood Pressure 118/81 Blood Pressure [Ri ght Arm] Blood Pressure [Ri ght Upper Arm] Pulse Oximetry 98 98 100 Oxygen Delivery Me thod 04/28/23 21:32 04/28/23 22:00 04/28/23 22:01 Temperature Pulse Rate 86 87 90 Pulse Rate [Pulse Oximeter] Respiratory Rate Blood Pressure 112/78 132/82 Blood Pressure [Ri ght Arm] Blood Pressure [Ri ght Upper Arm] Pulse Oximetry 100 98 100 Oxygen Delivery Me thod 04/28/23 22:25 04/28/23 22:26 04/28/23 22:30 Temperature 98.3 F Pulse Rate 95 94 100 Pulse Rate [Pulse Oximeter] Respiratory Rate 16 Blood Pressure 132/97 H 132/97 H Blood Pressure [Ri ght Arm] Blood Pressure [Ri ght Upper Arm] Pulse Oximetry 98 97 97 Oxygen Delivery Me thod 04/28/23 22:31 04/28/23 22:52 04/28/23 23:00 Temperature 98.3 F 98.3 F Pulse Rate 104 H 101 H Pulse Rate [Pulse Oximeter] 101 H Respiratory Rate 16 20 Blood Pressure 130/97 H 142/87 H Blood Pressure [Ri ght Arm] 142/87 H Blood Pressure [Ri ght Upper Arm] Pulse Oximetry 97 98 97 Oxygen Delivery Me thod Room Air 04/28/23 23:00 04/28/23 23:10 04/29/23 00:00 Temperature 98.6 F 98.6 F Pulse Rate 98 103 H 97 Pulse Rate [Pulse Oximeter] Respiratory Rate 22 20 Blood Pressure 123/80 119/88 Blood Pressure [Ri ght Arm] Blood Pressure [Ri ght Upper Arm] Pulse Oximetry 97 97 Oxygen Delivery Me thod 04/29/23 00:24 04/29/23 00:57 04/29/23 01:00 Temperature 98.3 F 98.7 F 98.7 F Pulse Rate 94 Pulse Rate [Pulse Oximeter] 101 H 94 Respiratory Rate 22 18 18 Blood Pressure 116/81 Blood Pressure [Ri ght Arm] 142/87 H 116/81 Blood Pressure [Ri ght Upper Arm] Pulse Oximetry 97 98 98 Oxygen Delivery Me thod Room Air Room Air 04/29/23 01:29 04/29/23 03:00 04/29/23 05:00 Temperature 98.7 F 98.5 F 98.5 F Pulse Rate 90 Pulse Rate [Pulse Oximeter] 82 78 Respiratory Rate 18 18 18 Blood Pressure 115/86 Blood Pressure [Ri ght Arm] 128/79 118/85 Blood Pressure [Ri ght Upper Arm] Pulse Oximetry 98 96 98 Oxygen Delivery Me thod Room Air Room Air 04/29/23 07:00 04/29/23 07:00 04/29/23 07:00 Temperature 97.4 F L Pulse Rate 72 Pulse Rate [Pulse Oximeter] 72 75 Respiratory Rate 18 18 Blood Pressure Blood Pressure [Ri ght Arm] 112/81 Blood Pressure [Ri ght Upper Arm] Pulse Oximetry 97 Oxygen Delivery Me thod Room Air Transfer Discharge Sum: Data Data Completed and Pending Completed studies during hospitalization: 04/28/2023 6:40 p.m. hemoglobin 5.5. 04/29/2023 5:47 a.m. hemoglobin 8.7. 04/28/2023 electrocardiogram showed normal sinus rhythm with an incomplete right bundle branch block. Repeat electrocardiogram showed sinus tachycardia with a rate of 103. Right bundle branch block. Relatively diffuse ST depression. 04/29/2023 EKG: Sinus rhythm with occasional PVCs, 73 beats per minute, incomplete right bundle-branch block, no ST depressions noted. Ordering Physician: Eyad Magallon M.D. Date of Service: 04/28/23 Procedure(s): CT angio chest PE protocol Accession Number(s): [id number] cc: Ellis Arellano M.D.; Eyad Magallon M.D.~ For Patients: As a result of the Century Cures Act, medical imaging exams and procedure reports are released immediately into your electronic medical record. You may view this report before your referring provider. If you have questions, please contact your health care provider. INDICATION: Shortness of breath. TECHNIQUE: CT Pulmonary Angiogram examination was performed after the administration of 95 mL Isovue 370 contrast intravenously. COMPARISON: None. FINDINGS: Lower neck: Visualized thyroid is unremarkable. Cardiovascular: Contrast opacification of the pulmonary arterial tree is adequate. Thoracic aorta is normal in caliber. Pulmonary artery is normal in caliber. No pulmonary embolus. No significant atherosclerotic calcifications. Heart size is normal. No right heart strain. No significant coronary arterial calcifications. Lungs: Dependent atelectasis. Linear bandlike opacifications of the lung bases likely due to subsegmental atelectasis and/or scarring. No focal consolidation. There is a mosaic attenuation pattern of opacification, nonspecific but can be seen with atypical infection, edema and/or air trapping. Airways: Layering debris within the dependent portions of the trachea. Otherwise, patent. Pleura: No pleural effusions or pneumothorax. Lymph nodes: No mediastinal, hilar, or axillary adenopathy. Chest wall: Normal. Upper abdomen: Visualized portions unremarkable. Bones: No acute osseous abnormalities. IMPRESSION: No pulmonary embolus. No CT evidence of right heart strain. Please note that all CT scans at this facility use dose modulation, iterative reconstruction, and/or weight-based dosing when appropriate to reduce radiation dose to as low as reasonably achievable. Dictated by Ozzie Mak MD @ 04/28/2023 7:24:01 PM (Electronically Signed) Transfer Discharge Sum: A/P Plan Functional capacity at transfer: independent ambulation Discharge Plan Discharge Disposition: [facility] Date of Admission: 04/29/23 09:39 Attending Provider on Discharge: Merly Herndon Primary Care Provider: Ellis Arellano Condition: Stable Oxygen: No Urinary Catheter: No Services not available here: GI, EGD
[2023-04-29] MEDS: OMEPRAZOLE 20 MG CAPSULE DR 40 MG PO (10:20)
--- NOTE | 2023-04-29 11:47 | PC.NURSE ---
Pt a/o and able to verbalize his needs this morning. VS WNL, HR 78, BP 120/89. Pt denies any pain or discomfort, states he feels much better today than last night. Hgb increased to 8.7 from admission. No emesis or stools today and pt is moving well with SBA. EKG this morning per MD order. Pt was accepted to [facility] and was transferred via [facility] at 1059. Report called to ANTHONY Powell.
== END 2023-04-29 10:55 | disposition short-term general hospital (02) | DRG 378 ==
LOC: ED 20:57 → MEDSURG 04-29 01:17
PROVIDERS: Admitting Provider Family Medicine; Emergency Provider Family Medicine; PCP Family Medicine; Visit Provider Family Medicine
DX: K92.2 Gastrointestinal hemorrhage, unspecified (principal); D62 Acute posthemorrhagic anemia; R12 Heartburn; K92.1 Melena; R07.9 Chest pain, unspecified; R03.0 Elevated blood-pressure reading, without diagnosis of hypertension; R94.31 Abnormal electrocardiogram [ECG] [EKG]
CPT/HCPCS: 36415; 36430; 71275; 80048; 80076; 82150; 82270; 83605; 84484; 85018; 85025; 85610; 85730; 86140; 86850; 86900; 86901; 86922; 93005; 94761; 95992; 99284; 99285; 99291; G0378; A9270; C9113; J2060; J2270; J3480; J7030; J7120; P9016; Q9967

== ENCOUNTER 2023-04-29 10:55 | Outpatient (CLI) | payer OTHER, SELFPAY | END 2023-04-29 10:56 | disposition home or self-care (01) | LOC: AMB 05-02 09:14 | PROVIDERS: PCP Family Medicine; Visit Provider Emergency Medicine | DX: K92.2 Gastrointestinal hemorrhage, unspecified (principal); K92.0 Hematemesis | CPT/HCPCS: A0425; A0426 ==

== ENCOUNTER 2023-06-09 14:29 | Outpatient (CLI) | payer OTHER, SELFPAY | END 2023-06-09 14:30 | disposition home or self-care (01) | PROVIDERS: PCP Family Medicine; Visit Provider Family Medicine | DX: E83.52 Hypercalcemia (principal) | CPT/HCPCS: 82306; 82310; 82607; 82728; 83540; 84443; 86803 ==

== ENCOUNTER 2024-03-07 09:13 | Outpatient (CLI) | payer OTHER, SELFPAY | END 2024-03-07 09:14 | disposition home or self-care (01) | PROVIDERS: PCP Family Medicine; Visit Provider Family Medicine | DX: Z00.00 Encounter for general adult medical examination without abnormal findings (principal); I10 Essential (primary) hypertension; E83.51 Hypocalcemia; R53.83 Other fatigue; D64.9 Anemia, unspecified; R63.4 Abnormal weight loss | CPT/HCPCS: 80053; 80061; 82728; 83540; G0103 ==

== ENCOUNTER 2024-04-11 08:49 | Outpatient (CLI) | payer OTHER, SELFPAY | END 2024-04-11 08:50 | disposition home or self-care (01) | LOC: LKVREF 08:50 | PROVIDERS: PCP Family Medicine; Visit Provider Family Medicine | DX: I10 Essential (primary) hypertension (principal); R53.83 Other fatigue; N52.9 Male erectile dysfunction, unspecified; F32.A Depression, unspecified | CPT/HCPCS: 84270; 84402; 84403 ==

== ENCOUNTER 2024-05-16 15:35 | Outpatient (CLI) | payer OTHER, SELFPAY | END 2024-05-16 15:36 | disposition home or self-care (01) | LOC: LKVREF 15:37 | PROVIDERS: PCP Family Medicine; Visit Provider Family Medicine | DX: R53.83 Other fatigue (principal); Z13.21 Encounter for screening for nutritional disorder | CPT/HCPCS: 82306 ==

== ENCOUNTER 2024-05-23 10:11 | Outpatient (CLI) | payer OTHER, SELFPAY | END 2024-05-23 10:12 | disposition home or self-care (01) | PROVIDERS: PCP Family Medicine; Visit Provider Family Medicine | DX: R53.83 Other fatigue (principal); M25.50 Pain in unspecified joint | CPT/HCPCS: 84550; 86038; 86039; 86431 ==